=== PATIENT | male | born 1975 | race African-American/Black ===

== ENCOUNTER 2021-05-25 00:10 | Emergency (ER) | payer MEDICAID, SELFPAY ==
--- NOTE | 2021-05-25 00:41 | ECG_ITS ---
Test Reason : HEADACHE Blood Pressure : / mmHG Vent. Rate : 070 BPM Atrial Rate : 070 BPM P-R Int : 174 ms QRS Dur : 086 ms QT Int : 386 ms P-R-T Axes : 038 010 039 degrees QTc Int : 416 ms Normal sinus rhythm Nonspecific T wave abnormality Abnormal ECG No previous ECGs available Referred By: Kathryn Guzman Electronically Signed By:OZIEL DOMINGUEZ MD
[2021-05-25 00:55] VITALS: BP 168/103; PULSE 74; RESP 16; O2SAT 98; BMI 37.6
[2021-05-25 01:44] LABS: MANUAL DIFF FLAG NO
[2021-05-25 01:46] LABS: Basophils Percent Auto 0.6 % (0-2); Eosinophils Absolute Auto 0.5 X10*3/uL (0.0-0.4); Hematocrit 44.7 % (42-52); Hemoglobin 14.8 g/dl (14.0-18.0); Imm Gran Abs Auto 0.02 X10*3/uL (0.00-0.03); Imm Gran Pct Auto 0.3 % (0.0-0.4); Lymphocytes Absolute Auto 2.7 X10*3/uL (1.2-4.9); Mean Corpuscular HGB Conc 33.1 g/dl (31.0-36.0); Mean Corpuscular Hemoglobin 28.3 pg (27.0-33.0); Mean Corpuscular Volume 85.5 fL (80-98); Mean Platelet Volume 10.7 fL (9.4-12.4); Monocytes Absolute Auto 0.6 X10*3/uL (0.1-1.2); Monocytes Percent Auto 9.1 % (2-11); Neutrophils Absolute Auto 2.8 X10*3/uL (2.0-8.3); Platelet Count 246 X10*3/uL (160-400); Red Blood Count 5.23 X10*6/uL (4.60-5.80); Red Cell Distribution Width 14.6 % (11.0-16.0); White Blood Count 6.6 X10*3/uL (4.8-10.8)
[2021-05-25 02:01] LABS: Alanine Aminotransferase 34 U/L (0-40); Albumin Level 4.2 g/dL (3.5-5.0); Alkaline Phosphatase 77 U/L (39-117); Anion Gap 12 (12-20); Aspartate Amino Transferase 29 U/L (5-37); Bilirubin Total 0.6 mg/dL (0.0-1.0); Blood Urea Nitrogen 14 mg/dL (9-16); Calcium 8.9 mg/dL (8.4-10.2); Carbon Dioxide 25 mmol/L (22-29); Chloride 108 mmol/L (96-108); Creatinine Clr Calc Pharmacy 125.3; Estimated Glomerular Filt Rate > 60; Glucose Random 91 mg/dL (60-115); Potassium 4.2 mmol/L (3.3-5.1); Sodium 141 mmol/L (135-145); Total Protein 7.4 g/dL (6.5-8.0)
--- NOTE | 2021-05-25 02:51 | ED.HA ---
HPI - Headache General Chief Complaint: Headache Stated Complaint: High BP, migraine Time Seen by Provider: 05/25/21 00:29 Source: patient Mode of arrival: ambulatory History of Present Illness HPI Narrative: This is a 45-year-old male without significant past medical history who presents with headache, nonradiating that he states is located at the left occipital/parietal area of his head and started 4 days ago without associated fevers, chills, neck pain, visual/auditory/speech changes and denies any extremity numbness/tingling/weakness. Patient states that he is tried Tylenol as well as ibuprofen, but this has not worked. In addition, patient states that he went to a mobile blood pressure check and that at that time his blood pressure was noted to be 160/110. Related Data Previous Rx's Medication Instructions Recorded hydrochlorothiazide 12.5 mg capsule 12.5 mg PO DAILY 30 Days #30 cap 05/25/21 ketorolac 10 mg tablet 10 mg PO Q6H PRN 5 Days #20 tab 05/25/21 Allergies Allergy/AdvReac Type Severity Reaction Status Date / Time No Known Allergies Allergy Verified 05/25/21 00:53 Review of Systems Review of Systems: Pertinent positives and negatives as stated in HPI 10 point review of systems is otherwise negative. [facility] Past Medical History Source: nursing notes reviewed Medical History No known health problems Social History Social History Advance Directives: No Physical Exam Vital Signs: Vital Signs: Last Vital Signs Pulse 65 05/25/21 03:04 Resp 16 05/25/21 03:04 BP 153/98 H 05/25/21 03:04 Pulse Ox 98 05/25/21 03:04 Body Mass Index 37.6 VITAL SIGNS: Reviewed. GENERAL: Well developed, well nourished, in no acute distress. HEAD: Normocephalic/atraumatic EYES: PERRLA, EOMI LUNGS: Normal breath sounds. No adventitious sounds or accessory muscle use. SpO2<98> CARDIOVASCULAR: Regular rate and rhythm without noted murmurs, no JVD or lower extremity edema. ABDOMEN: Soft, non-tender, non-distended with bowel sounds. NEUROLOGIC: Alert and oriented x 4. Strength and sensation to light touch were grossly intact x 4, no pronator drift, no facial asymmetry, cranial nerves 2-12 are grossly intact Course Course Course Narrative: 45-year-old male with history and clinical presentation of headache with low clinical suspicion for meningitis and patient is noted to be hypertensive and currently not on any medications for this. Patient denies any chest pain/palpitations and there are no focal deficits. Will provide combination analgesics for the headache, perform labs, EKG, urinalysis. Review of all investigations negative for acute findings and on re-evaluation after patient received combination analgesics he states that his headache has greatly improved. MDM - Headache Lab Data Result diagrams: 05/25/21 01:40 05/25/21 01:40 Labs: Lab Results 05/25/21 05/25/21 05/25/21 Range/Units 01:40 01:40 02:57 WBC 6.6 (4.8-10.8) X10*3/uL RBC 5.23 (4.60-5.80) X10*6/uL Hgb 14.8 (14.0-18.0) g/dl Hct 44.7 (42-52) % MCV 85.5 (80-98) fL MCH 28.3 (27.0-33.0) pg MCHC 33.1 (31.0-36.0) g/dl RDW 14.6 (11.0-16.0) % Plt Count 246 (160-400) X10*3/uL MPV 10.7 (9.4-12.4) fL Immature Gran % (Auto) 0.3 (0.0-0.4) % Neut % (Auto) 42.0 L (45-73) % Lymph % (Auto) 41.0 H (20-40) % [place] % (Auto) 9.1 (2-11) % Eos % (Auto) 7.0 H (0-4) % Baso % (Auto) 0.6 (0-2) % Lymph # (Auto) 2.7 (1.2-4.9) X10*3/uL [place] # (Auto) 0.6 (0.1-1.2) X10*3/uL Eos # (Auto) 0.5 H (0.0-0.4) X10*3/uL Baso # (Auto) 0.0 (0.0-0.2) X10*3/uL Abs Immat Gran (auto) 0.02 (0.00-0.03) X10*3/uL Absolute Neuts (auto) 2.8 (2.0-8.3) X10*3/uL Absolute Nucleated RBC 0.000 (0.0-0.012) X10*3/uL Nucleated RBC % (auto) 0.0 (0.0-0.2) /100WBC Sodium 141 (135-145) mmol/L Potassium 4.2 (3.3-5.1) mmol/L Chloride 108 (96-108) mmol/L Carbon Dioxide 25 (22-29) mmol/L Anion Gap 12 (12-20) BUN 14 (9-16) mg/dL Creatinine 0.97 (0.5-1.4) mg/dL Estim Creat Clear Calc 125.3 Estimated GFR > 60 Random Glucose 91 (60-115) mg/dL Calcium 8.9 (8.4-10.2) mg/dL Total Bilirubin 0.6 (0.0-1.0) mg/dL AST 29 (5-37) U/L ALT 34 (0-40) U/L Alkaline Phosphatase 77 (39-117) U/L Total Protein 7.4 (6.5-8.0) g/dL Albumin 4.2 (3.5-5.0) g/dL Urine Color YELLOW Urine Appearance CLEAR Urine pH 6.0 (5.0-8.0) Ur Specific [place] 1.025 (1.005-1.025) Urine Protein NEG (NEG-TRACE) MG/DL Urine Glucose (UA) NEG (NEG) MG/DL Urine Ketones NEG (NEG) MG/DL Urine Blood NEG (NEG) Urine Nitrite NEG (NEG) Ur Leukocyte Esterase TRACE H (NEG) Urine RBC 1-4 (0) /HPF Urine WBC 10-14 H (0-4) /HPF Ur Squamous Epith Cells 1+ /LPF Urine Bacteria 1+ /LPF ECG Data Attestation: I personally reviewed and interpreted this ECG as follows: Prior ECG tracings: not available for review Interpretation: Normal sinus rhythm, HR -70, no STEMI, DC/QRS/QTC is within normal limits. Discharge Plan Discharge Clinical Impression: Headache, Hypertension Patient Disposition: Home, Self-Care Instructions: DASH Eating Plan (ED), Hypertension (ED), General Headache (ED), Hydrochlorothiazide (By mouth), Ketorolac (By mouth) Additional Instructions: Tylenol 1000 mg, orally, every 6 hours as needed for pain control. Do not exceed 4000 mg within 24 hours. Follow-up with the primary care provider. Return to the ER for acute worsening symptoms. Prescriptions: New ketorolac 10 mg tablet 10 mg PO Q6H PRN (Reason: pain) 5 Days Qty: 20 RF: 0 hydrochlorothiazide 12.5 mg capsule 12.5 mg PO DAILY 30 Days Qty: 30 RF: 0 Print Language: Welsh
[2021-05-25 03:04] VITALS: BP 153/98; PULSE 65; RESP 16; O2SAT 98
[2021-05-25] MEDS: Acetaminophen 325 MG TABLET 975 MG PO (03:06)
[2021-05-25] MEDS: Ketorolac Tromethamine 15 MG/ML VIAL IVPUSH (03:07)
[2021-05-25 03:11] LABS: Appearance Urine CLEAR; Color Urine YELLOW; Glucose Urine UA NEG (NEG); Leukocyte Esterase Urine TRACE (NEG); Nitrite Urine NEG (NEG); Specific Gravity - Urine 1.025 (1.005-1.025); UACC Culture Trigger YES; Urine Blood NEG (NEG); Urine Ketones NEG (NEG); Urine Protein NEG (NEG-TRACE)
[2021-05-25 03:20] LABS: Bacteria Urine 1+ /LPF; Squamous Epithelial Cell Urine 1+ /LPF
[2021-05-25 04:23] VITALS: BP 141/86; PULSE 68; RESP 16; O2SAT 98
--- NOTE | 2021-05-25 04:24 | PC.NURSE ---
PT REPORTS NO LONGER EXPERIENCING HEADACHE.
--- NOTE | 2021-05-25 04:42 | PC.NURSE ---
pt was given list of providers and card with information to assist with health insurance.
== END 2021-05-25 04:42 | disposition home or self-care (01) ==
PROVIDERS: Emergency Provider Student in an Organized Health Care Education/Training Program
DX: R51.9 Headache, unspecified (principal); I10 Essential (primary) hypertension
CPT/HCPCS: 36415; 80053; 81001; 85025; 87086; 93005; 96374; 99284; J1885

== ENCOUNTER 2022-10-05 10:07 | Outpatient (REF) | payer MEDICAID, SELFPAY ==
[2022-10-05 10:40] LABS: MANUAL DIFF FLAG NO
[2022-10-05 10:46] LABS: Basophils Percent Auto 0.8 % (0-2); Eosinophils Absolute Auto 0.4 X10*3/uL (0.0-0.4); Hemoglobin 14.2 g/dl (14.0-18.0); Lymphocytes Absolute Auto 2.1 X10*3/uL (1.2-4.9); Lymphocytes Percent Auto 42.5 % (20-40); Mean Corpuscular HGB Conc 32.3 g/dl (31.0-36.0); Mean Corpuscular Hemoglobin 28.1 pg (27.0-33.0); Mean Corpuscular Volume 87.1 fL (80.0-98.0); Mean Platelet Volume 11.5 fL (9.4-12.4); Monocytes Absolute Auto 0.6 X10*3/uL (0.1-1.2); Monocytes Percent Auto 12.9 % (2-11); Neutrophils Absolute Auto 1.7 x10*3/uL (2.0-8.3); Neutrophils Percent Auto 35.8 % (45-73); Platelet Count 265 X10*3/uL (160-400); Red Blood Count 5.05 X10*6/uL (4.60-5.80); Red Cell Distribution Width 14.6 % (11.0-16.0); White Blood Count 4.9 X10*3/uL (4.8-10.8)
[2022-10-05 11:27] LABS: Alanine Aminotransferase 51 U/L (0-40); Albumin Level 4.3 g/dL (3.5-5.0); Alkaline Phosphatase 87 U/L (39-117); Anion Gap 10 (12-20); Aspartate Amino Transferase 28 U/L (5-37); Bilirubin Total 1.8 mg/dL (0.0-1.0); Blood Urea Nitrogen 15 mg/dL (9-16); Calcium 9.2 mg/dL (8.4-10.2); Carbon Dioxide 28 mmol/L (22-29); Chloride 107 mmol/L (96-108); Cholesterol 157 mg/dL; Estimated Glomerular Filt Rate > 60; Glucose Fasting 82 mg/dL (60-99); HDL Cholesterol 33 mg/dL; LDL Cholesterol Calculated 109 mg/dl; Potassium 4.1 mmol/L (3.3-5.1); Sodium 141 mmol/L (135-145); Total Protein 7.2 g/dL (6.5-8.0); Triglycerides 75 mg/dL
[2022-10-05 11:43] LABS: Prostate Specific Antigen Scr 0.83 ng/mL (<0.05-4.0)
[2022-10-05 14:36] LABS: Creatinine Urine 278.83 mg/dL; Protein/Creatinine Ratio, Ur 0.06 (<0.2); Total Protein Urine Random 16 mg/dL (<12)
== END 2022-10-05 10:08 | disposition home or self-care (01) ==
LOC: HO.10HDL 10:07
PROVIDERS: Visit Provider Internal Medicine
DX: Z00.01 Encounter for general adult medical examination with abnormal findings (principal); Z12.5 Encounter for screening for malignant neoplasm of prostate; Z13.31 Encounter for screening for depression; E66.9 Obesity, unspecified; I10 Essential (primary) hypertension
CPT/HCPCS: 36415; 80053; 80061; 84153; 84156; 85025

== ENCOUNTER → 2022-11-30 10:46 | Outpatient (BNVA) | payer MEDICAID, SELFPAY | PROVIDERS: Visit Provider Physician Assistant | DX: Z12.11 Encounter for screening for malignant neoplasm of colon (principal) | CPT/HCPCS: 99202 ==

== ENCOUNTER 2023-02-08 12:46 | Day surgery (SDC) | payer MEDICAID, SELFPAY ==
[2023-02-03 14:27] VITALS: BMI 33.5
--- NOTE | 2023-02-05 09:20 | HO.ANESPROP2 ---
Documented by User: Silvia Franco NP 02/05/23 09:20 HPI - Anesthesia Eval Consult details Narrative: 47yo M for Colonoscopy PMFSH Active Problems Active Problems: All Active Problems (Updated 02/03/23 @ 14:42 by Peace Garcia RN) Encounter for screening colonoscopy (Acute) Past Medical History Medical History HTN (hypertension) Social History Social History Household Members Other:: single Are you a primary resident care aide to a significant other at home: No Do you presently have visiting nurse or other home services: No Alcohol intake: unknown Patient Tobacco Use Status: Never used Tobacco Use of substances other than those prescribed or required for medical reasons: No Have you been hit, kicked, punched, or otherwise hurt by someone within the past year? 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 Allergies Allergy/AdvReac Type Severity Reaction Status Date / Time No Known Allergies Allergy Verified 11/30/22 11:10 Home Medications Medication Instructions Recorded Confirmed Last Taken Type losartan 100 1 tab PO DAILY 11/30/22 02/03/23 02/07/23 History mg-hydrochlorothiazide 25 mg tablet Exam Exam Date and Time: February 05, 2023 0920 Height,Weight and Vital Signs: Height 5 ft 11 in Weight 108.862 kg Pertinent Lab Results Pertinent Lab Results: Laboratory Tests 10/05/22 10/05/22 10:15 10:15 WBC 4.9 Hgb 14.2 Hct 44.0 Plt Count 265 Sodium 141 Potassium 4.1 Chloride 107 Carbon Dioxide 28 BUN 15 Creatinine 1.07 Assessment and Plan Assessment Anesthesia Assessment: Chart Reviewed Documented by User: Karolina Ordonez MD 02/08/23 14:41 PMFSH Past Medical History Medical History HTN (hypertension) Family History Family history of problems with anesthesia: No Surgical History History of Problems with Anesthesia: No Social History Social History Household Members Other:: single Are you a primary resident care aide to a significant other at home: No Do you presently have visiting nurse or other home services: No Alcohol intake: unknown Patient Tobacco Use Status: Never used Tobacco Use of substances other than those prescribed or required for medical reasons: No Have you been hit, kicked, punched, or otherwise hurt by someone within the past year? 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 Allergies Allergy/AdvReac Type Severity Reaction Status Date / Time No Known Allergies Allergy Verified 11/30/22 11:10 Home Medications Medication Instructions Recorded Confirmed Last Taken Type losartan 100 1 tab PO DAILY 11/30/22 02/03/23 02/07/23 History mg-hydrochlorothiazide 25 mg tablet Exam Airway Mallampati Class: II TM Dist: >3cm Neck ROM: Full Heart: rrr Lungs: cta Assessment and Plan Assessment Anesthesia Assessment: Anesthesia Plan Discussed Final Anesthetic Review Family History of Problems with Anesthesia: No History of Problems with Anesthesia: No NPO: Yes ASA Class: I Final Preanesthetic Review: No Changes in Pt Med Stat, Meds/Allgs Chart Reviewed, Consent Obtained/Reviewed and Anes Risks/Benef Reviewed Patient Risk: Low Procedure Risk: Low Anesthetic Plan Anesthetic Plan: MAC: Disposition: Standard PACU
[2023-02-08 12:52] VITALS: BP 126/77; PULSE 73; RESP 20; TEMP 36.6; O2SAT 99
--- NOTE | 2023-02-08 14:17 | MHC.SHP ---
Pre-Procedural Eval Section A Date of Service: 02/08/23 The patient is an INPATIENT: No The History & Physical has been completed within 30 days and I have reviewed it.: No Section B Chief Complaint: screening Relevant Family History (Specify if Yes): No Relevant Social History: None Present Medications: see Short Stay Collaborative assessment Medical History: Significant History (hypertension) History of Previous Operations: No relevant previous surgery Allergies: Allergies Allergy/AdvReac Type Severity Reaction Status Date / Time No Known Allergies Allergy Verified 11/30/22 11:10 Review of Systems Sugical H&P ROS: Negative: Constitution, Cardiovascular, Respiratory and Gastrointestinal Exam Surgical H&P Exam: Normal: Heart, Normal: Lungs, Normal: Extremities and Normal: Abdomen Plan Diagnosis/Plan: Unchanged I have reviewed the history and physical and performed a pertinent physical examination on my patient. No changes have occurred unless specified. Time Spent With Patient Time: Total time managing care of this patient today ____ minutes.
--- NOTE | 2023-02-08 14:58 | W.PM.OPN ---
Operative Note Operative Note Date of Service: 02/08/23 Narrative: COLONOSCOPY TILL CECUM WITH BIOPSIES AND SNARE POLYPECTOMY Pre-op diagnosis: colon cancer screening Post-op diagnosis:? colon polyps, diverticulosis, hemorrhoids Endoscopist:? Heidy Waters MD Anesthesia:?MAC Consent: Indications for the procedure and potential complications of bleeding, perforation, reaction to medications and missed diagnosis were discussed with the patient and informed consent was obtained. Instrument: Olympus PCF H 190 L variable stiffness pediatric colonoscope Monitoring: Vital signs and clinical assessment, intermittent blood pressure monitoring, continuous EKG monitoring, Pulse oximetry and Carbon Dioxide monitoring were done throughout the procedure. Please see anesthesia flowsheet. Colon withdrawl time was 15 minutes. Procedure: The patient was placed in the left lateral decubitis position and pre-procedure medications were administered. After a digital rectal examination of the ano-rectum, the video colonoscope was inserted into the rectum and advanced through the colon to the cecum. The colonoscope was slowly withdrawn in a retrograde panoramic fashion and the colon mucosa was carefully examined including a retroflexed view of the rectum. Findings and interventions are described below. Procedure Difficulty: Without difficulty Findings: Terminal Ileum: Not evaluated Cecum: Normal Ascending Colon: Two 2-4 mm sessile polyps - removed with a cold bx Transverse Colon: Two 7-8 mm sessile polyps - removed with a cold snare Descending Colon: moderate diverticulosis Sigmoid Colon: Moderate diverticulosis Rectum: Normal Ano-rectum: Moderate internal hemorrhoids and hypertrophied anal papillae Colon preparation: Good after some irrigation Impression and Post Procedure Diagnosis: Colonoscopy Findings: Four small polyps removed Moderate diverticulosis seen in the left colon Moderate hemorrhoids on retroflexed exam. Plan: Await pathology results Patient has an appointment on 02/22/23 in the GI Clinic with SKYLAR Brody. Repeat Colonoscopy interval based on path results - in 3-5 years if polyps are adenomatous and 10 years if polyps are hyperplastic. Colon polyps and diverticulosis handouts were given in the discharge area
[2023-02-08 15:38] VITALS: BP 100/46; PULSE 76; RESP 16; TEMP 36.7; O2SAT 96
[2023-02-08 15:53] VITALS: BP 112/78; PULSE 69; RESP 16; TEMP 36.3; O2SAT 96
== END 2023-02-08 16:15 | disposition home or self-care (01) ==
PROVIDERS: PCP Internal Medicine; Visit Provider Internal Medicine Gastroenterology
PROC: 0DJD8ZZ Inspection of Lower Intestinal Tract, Via Natural or Artificial Opening Endoscopic (ICD-10-PCS; CPT 45378; principal; 2023-02-08 14:40)
DX: Z12.11 Encounter for screening for malignant neoplasm of colon (principal); D12.2 Benign neoplasm of ascending colon; D12.3 Benign neoplasm of transverse colon; K57.30 Diverticulosis of large intestine without perforation or abscess without bleeding; K62.89 Other specified diseases of anus and rectum; K64.8 Other hemorrhoids; I10 Essential (primary) hypertension
CPT/HCPCS: 45385; 45380; 88305

== ENCOUNTER 2023-02-11 13:52 | Outpatient (REF) | payer MEDICAID, SELFPAY | END 2023-02-11 13:53 | disposition home or self-care (01) | LOC: HO.LAB 13:52 | PROVIDERS: PCP Internal Medicine; Visit Provider Internal Medicine | DX: I10 Essential (primary) hypertension (principal); R74.01 Elevation of levels of liver transaminase levels | CPT/HCPCS: 36415; 80053; 86704; 86706; 86709; 86803; 87340 ==

== ENCOUNTER 2023-04-08 10:24 | Outpatient (AMB) | payer MEDICAID, SELFPAY ==
--- NOTE | 2023-04-08 10:27 | A.OFFVIS_ITS ---
Intake Vital Signs 04/08/23 10:28 Height 5 ft 11 in Weight 249 lb 9.012 oz BMI 34.8 BP 114/73 Blood Pressure Location Lt brachial Position Sitting Pulse 89 Intake Visit Reasons: S/P [place] screening; Dr. Waters Intake Note: Rodolfo presents in office as a est.patient for a post-op for colo PT CC: pt reports having no concerns pt denies any other GI issues Senior Sustainability Advisor Required: No Accompanied by: Self / Same As Patient Allergies No Known Allergies Allergy (Verified 04/08/23 10:33) HPI HPI Comments History of Present Illness Details A 47-year-old male follows up after recent index screening colonoscopy with polypectomy Tolerated procedure well No GI complaints Reviewed procedure report, pathology as well as recommendations No nausea, vomiting, hematemesis, fevers or chills PFSH Medical History HTN (hypertension) Surgical History Hx of colonoscopy Social History Household Members Other:: single Are you a primary geriatric care manager to a significant other at home: No Do you presently have visiting nurse or other home services: No Alcohol intake: unknown Patient Tobacco Use Status: Never used Tobacco Current occupational status: employed 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 Review of Systems Const All systems reviewed & are unremarkable except as noted in HPI and below Card Denies chest pain and Denies dyspnea Resp Denies dyspnea GI Denies abdominal pain Physical Exam Vital Signs: Last Vital Signs Pulse 89 04/08/23 10:28 BP 114/73 04/08/23 10:28 BMI result Body Mass Index 34.8 Const General: cooperative, healthy appearing, comfortable and no acute distress Orientation/consciousness: patient oriented x3 Limitations: no limitations Resp Effort & Inspection: normal respiratory effort and able to speak in complete sentences Neuro General: patient oriented x3 Psych Appearance: grossly normal and well kempt Mental Status: mental status grossly normal Speech and movement: Normal speech and movement present Affect: normal affect Attitude: cooperative Thought process: Normal thought process present Thought content: Normal thought content present Results Reviewed Results Reviewed: Colonoscopy Findings: Four small polyps removed Moderate diverticulosis seen in the left colon Moderate hemorrhoids on retroflexed exam. Plan: Await pathology results Patient has an appointment on 02/22/23 in the GI Clinic with SKYLAR Brody. Repeat Colonoscopy interval based on path results - in 3-5 years if polyps are adenomatous and 10 years if polyps are hyperplastic. Colon polyps and diverticulosis handouts were given in the discharge area Name:Rodolfo Berumen Age/Sex: 47/M Attending: Heidy Waters MD : 1975 Submitted by: Heidy Waters MD Copies to: Sophia Toure MD MR #: [id number] ? Status: [facility] Collected: 02/08/23 Location: [facility] Received: 02/10/23 Diagnosis A.? Colon, ascending, polyps:? Tubular adenomas, two, completely excised; negative for high-grade dysplasia and carcinoma. B.? Colon, transverse, polyps:? Tubular adenomas, two, completely excised; negative for high-grade dysplasia and carcinoma. Clinical History Pre-Op Dx:? Screening Post-Op Dx: Colon polyps, diverticulosis, hemorrhoids Repeat colonoscopy 3 years 2025 Assessment & Plan Assessment & Plan (1) Tubular adenoma of colon: Comment: Index screening colonoscopy tubular adenomas-repeat 3years Code(s): D12.6 - Benign neoplasm of colon, unspecified Plan: Repeat colonoscopy 3 (2) Diverticulosis of colon: Comment: Discussed foods to avoid Code(s): K57.30 - Diverticulosis of large intestine without perforation or abscess without bleeding Plan: Diverticulosis/diverticulitis ER protocol Maintain high-fiber diet (3) Hemorrhoids: Code(s): K64.9 - Unspecified hemorrhoids Plan: Maintain high-fiber diet Avoid straining Plan Repeat asymptomatic colonoscopy 3 years-2025 AFDR- screen @ age 40 Diverticulosis/diverticulitis ER protocol Avoid straining with hemorrhoids Maintain high-fiber diet Patient Instructions: Repeat asymptomatic colonoscopy 3 years-2025 AFDR- screen @ age 40 Diverticulosis/diverticulitis ER protocol Avoid straining with hemorrhoids Maintain high-fiber diet Encouraged to call questions or concerns Coding Level of Care Code Est Pt Level 3 (54056) Diagnoses Tubular adenoma of colon D12.6 Diverticulosis of colon K57.30 Hemorrhoids K64.9 Time Spent (min) 20
[2023-04-08 10:28] VITALS: BP 114/73; PULSE 89; BMI 34.8
== END 2023-04-08 11:57 | disposition home or self-care (01) ==
PROVIDERS: PCP Internal Medicine; Visit Provider Physician Assistant
DX: D12.6 Benign neoplasm of colon, unspecified (principal); K57.30 Diverticulosis of large intestine without perforation or abscess without bleeding; K64.9 Unspecified hemorrhoids

== ENCOUNTER → 2023-04-08 10:24 | Outpatient (BNVA) | payer MEDICAID, SELFPAY | PROVIDERS: PCP Internal Medicine; Visit Provider Physician Assistant | DX: D12.2 Benign neoplasm of ascending colon (principal); D12.3 Benign neoplasm of transverse colon; K57.30 Diverticulosis of large intestine without perforation or abscess without bleeding; K64.9 Unspecified hemorrhoids; Z98.890 Other specified postprocedural states | CPT/HCPCS: 99212; 99213 ==

== ENCOUNTER 2024-01-17 09:04 | Outpatient (REF) | payer MEDICAID, SELFPAY ==
[2024-01-17 11:06] LABS: MANUAL DIFF FLAG NO
[2024-01-17 11:09] LABS: Basophils Percent Auto 0.7 % (0-2); Eosinophils Absolute Auto 0.4 X10*3/uL (0.0-0.4); Hematocrit 40.5 % (42.0-52.0); Hemoglobin 13.6 g/dl (14.0-18.0); Imm Gran Abs Auto 0.01 X10*3/uL (0.00-0.03); Imm Gran Pct Auto 0.2 % (0.0-0.4); Lymphocytes Absolute Auto 2.1 X10*3/uL (1.2-4.9); Lymphocytes Percent Auto 36.2 % (20-40); Mean Corpuscular HGB Conc 33.6 g/dl (31.0-36.0); Mean Corpuscular Hemoglobin 28.9 pg (27.0-33.0); Mean Platelet Volume 10.7 fL (9.4-12.4); Monocytes Absolute Auto 0.6 X10*3/uL (0.1-1.2); Monocytes Percent Auto 10.2 % (2-11); Neutrophils Absolute Auto 2.7 x10*3/uL (2.0-8.3); Neutrophils Percent Auto 45.7 % (45-73); Platelet Count 256 X10*3/uL (160-400); Red Blood Count 4.71 X10*6/uL (4.60-5.80); Red Cell Distribution Width 15.1 % (11.0-16.0); White Blood Count 5.9 X10*3/uL (4.8-10.8)
[2024-01-17 11:30] LABS: Alanine Aminotransferase 33 U/L (0-40); Albumin Level 3.9 g/dL (3.5-5.0); Alkaline Phosphatase 84 U/L (39-117); Anion Gap 9 (12-20); Aspartate Amino Transferase 29 U/L (5-37); Bilirubin Total 0.5 mg/dL (0.0-1.0); Blood Urea Nitrogen 13 mg/dL (9-16); Calcium 8.9 mg/dL (8.4-10.2); Carbon Dioxide 27 mmol/L (22-29); Chloride 108 mmol/L (96-108); Cholesterol 149 mg/dL (<200); Estimated Glomerular Filt Rate > 60; Glucose Random 98 mg/dL (60-115); HDL Cholesterol 38 mg/dL (>40); LDL Cholesterol Calculated 89 mg/dL (<100); Potassium 3.6 mmol/L (3.3-5.1); Sodium 140 mmol/L (135-145); Total Protein 7.3 g/dL (6.5-8.0); Triglycerides 111 mg/dL (<150)
[2024-01-17 11:44] LABS: Prostate Specific Antigen Scr 0.75 ng/mL (<0.05-4.0)
== END 2024-01-17 09:05 | disposition home or self-care (01) ==
LOC: HO.10HDL 09:04
PROVIDERS: Visit Provider Internal Medicine
DX: E83.52 Hypercalcemia (principal); I10 Essential (primary) hypertension; N40.0 Benign prostatic hyperplasia without lower urinary tract symptoms; Z68.37 Body mass index [BMI] 37.0-37.9, adult
CPT/HCPCS: 36415; 80053; 80061; 84153; 85025

== ENCOUNTER 2024-07-24 08:03 | Outpatient (REF) | payer MEDICAID, SELFPAY ==
--- OUTSIDE RECORDS SUMMARY | 2024-07-24 08:08 | XMS_ITS | Continuity of Care Document ---
Author Organization [facility] Address [address] [place] [address] Phone Care Team Providers Care Acquisitions Analyst Name Role Phone Saleem SMART, Edward Unavailable Unavailable Allergies, Adverse Reactions, Alerts Substance Reaction Status Criticality No Known Allergies Active No Inform ation Procedures Procedure Date Offic Cons New/estab Mod-hi 60 19 Duplex Scan-extrem Veins; Uni/ Advance Directives Directive Yes / No Effective Date File Name No Information Encounters Encounter Description Practice Location Reason(s) For Visit Diagnoses Date Provider Providers Copied on Encounter Offic Cons New/estab Mod-hi 60 [facility] [place] [facility], [address], [id number], [place] tel:[phone] LURDES Paiz Body mass index (BMI) 30.0-30.9, adultVaricose veins of left lower extremities w oth complicationsVeno us insufficiency (chronic) (peripheral) Sep-0 9-201 9 Saleem Leon. [address], [address], [place], [place], [id number] , [place]. tel:[phone] Referring Provider: Edward Monge MD, [address], [place], [address] . tel:[phone] [facility], [address], [place], [place], [id number], [place] tel:[phone] LURDES Paiz Chronic venous hypertension w oth comp of l low extremVaricose veins of left lower extremities with pain Sep-0 9 Paulino Ingram. [address] [place], [place], [id number] , . tel: [phone] Referring Provider: Edward Monge MD, [address], [place], [address] . tel:[phone] Family History Family Member Type Diagnosis Age At Onset No Information Payers Payer name Insurance type Covered republican ID Authoriza tion(s) Self Pay 09 Social History Type Description Quantity Date Captured Comments Alcohol Use Details No Caffeine Use Details Unknown Tobacco Use Status Never smoked tobacco 2018 Smoking Status Never smoker Non-Smoking Tobacco Use Details : No Details Available : No Details Available Sex Male Vital Signs Date / Time: Height Weight BMI Pulse Rate Blood Pressure Temperature Respiratory Rate Body Surface Area Head Circumference Head Circ. Percentile Wt./Terry. Percentile BMI percentile Pulse Ox Inhaled Ox 3:14 PM 74.00 in 108.862 kg (240.00 lbs) 30.8 1 kg/m eter (2) 62 /min 105/63 mm[Hg] 20 /min Chief Complaint And Reason For Visit No Information Reason For Referral Reason For Referral No Information Plan Of Treatment Date Type Action Status Goal Diet education completed Referral Ordered: Duplex Scan-extrem Veins; Comp ordered History Of Present Illness Encounter Date Complaint History Of Prese nt Illness No Information Functional Status Date Functional Assessmen t Pain Score 4/10 Instructions Date Instruction Additional Infor mation Giving Encouragement to Exercise Related to Body mass index (BMI) 30.0-30.9, adult Diet education Related to Body mass index (BMI) 30.0-30.9, adult Patient education booklet given Related to V V w/Othr Complictns ([id number]); LEFT Pre and post instruc tions reviewed and provided Related to V V w/Othr Complictns ([id number]); LEFT Assessments Type Assessment Date assessment Body mass index (BMI) 30.0-30.9, adult assessment Varicose veins of left lower ext remities w oth complications assessment Venous insufficiency (chronic) ( peripheral) Patient Care Teams Name Effective Dates (start - stop) Status Members No Information
[2024-07-24 12:04] LABS: Alanine Aminotransferase 23 U/L (0-40); Alkaline Phosphatase 74 U/L (39-117); Anion Gap 10 (12-20); Aspartate Amino Transferase 26 U/L (5-37); Bilirubin Total 0.6 mg/dL (0.0-1.0); Blood Urea Nitrogen 12 mg/dL (9-16); Calcium 8.9 mg/dL (8.4-10.2); Carbon Dioxide 31 mmol/L (22-29); Chloride 104 mmol/L (96-108); Estimated Glomerular Filt Rate > 60; Glucose Random 101 mg/dL (60-115); Potassium 3.5 mmol/L (3.3-5.1); Sodium 141 mmol/L (135-145); Total Protein 7.5 g/dL (6.5-8.0)
== END 2024-07-24 08:04 | disposition home or self-care (01) ==
LOC: HO.10HDL 08:03
PROVIDERS: Visit Provider Internal Medicine
DX: Z00.00 Encounter for general adult medical examination without abnormal findings (principal); I10 Essential (primary) hypertension; R74.01 Elevation of levels of liver transaminase levels
CPT/HCPCS: 36415; 80053

== ENCOUNTER 2025-02-26 09:33 | Outpatient (REF) | payer MEDICAID, SELFPAY ==
[2025-02-26 10:11] LABS: MANUAL DIFF FLAG NO
[2025-02-26 10:19] LABS: Hematocrit 41.4 % (42.0-52.0); Hemoglobin 13.8 g/dl (14.0-18.0); Imm Gran Abs Auto 0.02 X10*3/uL (0.00-0.03); Imm Gran Pct Auto 0.3 % (0.0-0.4); Lymphocytes Absolute Auto 2.7 X10*3/uL (1.2-4.9); Mean Corpuscular HGB Conc 33.3 g/dl (31.0-36.0); Mean Corpuscular Hemoglobin 28.9 pg (27.0-33.0); Mean Corpuscular Volume 86.8 fL (80.0-98.0); NRBC Abs Auto 0.000 X10*3/uL (0.0-0.012); NRBC Pct Auto 0.0 /100WBC (0.0-0.2); Platelet Count 289 X10*3/uL (160-400); Red Blood Count 4.77 X10*6/uL (4.60-5.80); White Blood Count 6.6 X10*3/uL (4.8-10.8)
[2025-02-26 10:56] LABS: Prostate Specific Antigen 0.86 ng/mL (<0.05-4.0)
[2025-02-26 10:59] LABS: Alanine Aminotransferase 25 U/L (0-40); Albumin Level 4.3 g/dL (3.5-5.0); Alkaline Phosphatase 85 U/L (39-117); Anion Gap 12 (12-20); Aspartate Amino Transferase 27 U/L (5-37); Blood Urea Nitrogen 21 mg/dL (9-16); Calcium 9.3 mg/dL (8.4-10.2); Carbon Dioxide 27 mmol/L (22-29); Chloride 105 mmol/L (96-108); Cholesterol 173 mg/dL (<200); Estimated Glomerular Filt Rate > 60; HDL Cholesterol 33 mg/dL (>40); Potassium 3.4 mmol/L (3.3-5.1); Sodium 141 mmol/L (135-145); Total Protein 7.8 g/dL (6.5-8.0); Triglycerides 142 mg/dL (<150)
== END 2025-02-26 09:34 | disposition home or self-care (01) ==
LOC: HO.10HDL 09:33
PROVIDERS: Visit Provider Internal Medicine
DX: Z00.00 Encounter for general adult medical examination without abnormal findings (principal); Z12.5 Encounter for screening for malignant neoplasm of prostate; E66.812 Obesity, class 2; I10 Essential (primary) hypertension; N40.0 Benign prostatic hyperplasia without lower urinary tract symptoms; Z86.0101 Personal history of adenomatous and serrated colon polyps
CPT/HCPCS: 36415; 80053; 80061; 84153; 85025

== ENCOUNTER 2025-05-29 10:02 | Outpatient (REF) | payer MEDICAID, SELFPAY ==
[2025-05-29 11:34] LABS: Alanine Aminotransferase 26 U/L (0-40); Albumin Level 4.3 g/dL (3.5-5.0); Alkaline Phosphatase 81 U/L (39-117); Anion Gap 10 (12-20); Aspartate Amino Transferase 30 U/L (5-37); Blood Urea Nitrogen 11 mg/dL (9-16); Calcium 9.0 mg/dL (8.4-10.2); Carbon Dioxide 28 mmol/L (22-29); Chloride 105 mmol/L (96-108); Cholesterol 180 mg/dL (<200); Estimated Glomerular Filt Rate > 60; HDL Cholesterol 35 mg/dL (>40); Potassium 3.4 mmol/L (3.3-5.1); Sodium 140 mmol/L (135-145); Total Protein 7.7 g/dL (6.5-8.0); Triglycerides 126 mg/dL (<150)
== END 2025-05-29 10:03 | disposition home or self-care (01) ==
LOC: HO.10HDL 10:02
PROVIDERS: Visit Provider Internal Medicine
DX: E66.01 Morbid (severe) obesity due to excess calories (principal); I10 Essential (primary) hypertension; E78.2 Mixed hyperlipidemia
CPT/HCPCS: 36415; 80053; 80061